=== PATIENT | male | born 1990 | race Caucasian/White ===

== ENCOUNTER 2019-02-27 13:44 | Emergency (ER) | payer SELFPAY ==
[2019-02-27] MEDS ORDERED: SILVER SULFADIAZINE 25 GM CREAM TOP ONE (14:13)
[2019-02-27] MEDS ORDERED: Diph,Pert(Acell),Tet Vac 0.5 ML SYR IM ONE (14:13)
[2019-02-27] MEDS ORDERED: MORPHINE SULFATE 10MG/1ML **1ML VIAL IVP ONE (14:14)
[2019-02-27] MEDS ORDERED: 0.9 % SODIUM CHLORIDE 1,000 ML BAG IV ONE (14:14)
[2019-02-27] MEDS ORDERED: KETOROLAC 30 MG/ML VIAL IVP ONE (14:14)
--- NOTE | 2019-02-27 14:17 | Emergency Department Record ---
History of Present Illness - General Chief complaint: Burn/Smoke Inhalation Stated complaint: SUNBURN LEGS Time Seen by Provider: 02/27/19 14:13 Source: Patient Mode of Arrival: Wheelchair Limitations: No limitations - History of Present Illness Initial comments: 28 yo male presents with bilateral lower leg sunburns that occurred on . He was mowing for 11 hours. He has gomes on the front only of the lower legs on below the knee to the sock line. He has a few blisters on each leg. Onset/Timin -: Days(s) Smoke Inhalation: None Severity scale (1-10): 7 - Related Data Home Medications Medication Instructions Recorded Confirmed Last Taken Fluoxetine HCl [Prozac] 40 mg PO DAILY 02/27/19 02/27/19 02/26/19 Previous Rx's Medication Instructions Recorded Hydrocodone/APAP 5/325Mg [[place] 1 each PO Q6H #12 tab 02/27/19 5Mg/325Mg] Silver Sulfadiazine [Ssd] 85 gm TP BID #2 cream.gm. 02/27/19 Allergies Allergy/AdvReac Type Severity Reaction Status Date / Time No Known Drug Allergies Allergy Unverified 01/28/19 10:21 Travel Screening - Travel/Exposure Within Last 30 Days Have you traveled within the last 30 days?: No - Travel/Exposure Within Last Year Have you traveled outside the [place] in the last year?: No - Additonal Travel Details Have you been exposed to anyone with a communicable illness?: No - Travel Symptoms Symptom Screening: None Past Medical History - SOCIAL HISTORY Smoking Status: Current every day smoker Alcohol Use: Occasional Drug Use: None - RESPIRATORY Hx Respiratory Disorders: No - CARDIOVASCULAR Hx Cardio Disorders: No - NEURO Hx Neuro Disorders: No - GI Hx GI Disorders: No - Hx Genitourinary Disorders: No - ENDOCRINE Hx Endocrine Disorders: No - MUSCULOSKELETAL Hx Musculoskeletal Disorders: No - PSYCH Hx Psych Problems: Yes Hx Depression: Yes - HEMATOLOGY/ONCOLOGY Hx Hematology/Oncology Disorders: No Family Medical History Any Significant Family History?: No Physical Exam - General General Appearance: Alert, Oriented x3, Cooperative, No acute distress Limitations: No limitations - Head Head exam: Atraumatic, Normal inspection - Eye Eye exam: Normal appearance, PERRL, Conjunctival injection. negative: Scleral icterus - ENT ENT exam: Normal exam Ear exam: Normal external inspection Nasal Exam: Normal inspection Mouth exam: Normal external inspection - Neck Neck exam: Normal inspection - Respiratory Respiratory exam: Normal lung sounds bilaterally. negative: Rhonchi, Stridor, Wheezes - Cardiovascular Cardiovascular Exam: Regular rate, Normal rhythm, Normal heart sounds - Rectal Rectal exam: Deferred - exam: Deferred - Extremities Extremities exam: Full ROM, Normal capillary refill, Pedal edema, Tenderness. negative: Normal inspection Image of Full Body: 1 - erythema from just distal to the knee to the sock line. Superfical over the majority. anterior only, 2 - 3cm partial thickness blister 3 - 3cm blister - Back Back exam: Reports: Full ROM - Neurological Neurological exam: Alert, Oriented X3 - Psychiatric Psychiatric exam: Normal affect, Normal mood - Skin Skin exam: Erythema Description of rash: Other (3cm blister on each anterior cuello) Course Vital Signs 02/27/19 13:50 Pulse Rate 91 H Respiratory 16 Rate Blood Pressure 135/87 Pulse Ox 97 - Reevaluation(s) Reevaluation #1: The sunburn is only in the anterior leg. It is not circumferential. The calves are very soft No clinical finding to suggest compartment syndrome 02/27/19 15:14 Procedure: Wound debridement 2 3cm cm blisters were gently unroofed and drained 11 blade used to open then scissors to sharply dissect off the tissue We discussed home care with dressing changes, recheck in 2-3 days if any concerns or sooner if worse, fever, uncontrolled pain 02/27/19 Off work the next three days to recover Medical Decision Making - Lab Data Result diagrams: 02/27/19 14:28 Disposition Disposition: Discharge Clinical Impression: Burn from the sun, Partial thickness burn Disposition: Home, Self-Care Condition: (1) Good Instructions: Sunburn (ED), Second Degree Burn (ED) Additional Instructions: Keep the legs elevated to minimize swelling Return if you have worse pain, swelling or any new concerns Gently clean the legs daily and apply the silvadene twice daily with dressing changes Prescriptions: Hydrocodone/APAP 5/325Mg [[place] 5Mg/325Mg] 1 each PO Q6H #12 tab Silver Sulfadiazine [Ssd] 85 gm TP BID #2 cream.gm. Forms: Patient Portal Access Time of Disposition: 15:18 Quality - Quality Measures Quality Measures: N/A - Blood Pressure Screening Does Patient Have Any of the Following: No Blood Pressure Classification: Pre-Hypertensive BP Reading Systolic Measurement: 134 Diastolic Measurement: 80 Screening for High Blood Pressure: < Pre-Hypertensive BP, F/U Documented > [G8950] Pre-Hypertensive Follow-up Interventions: Referral to alternative/primary care provider.
[2019-02-27 16:07] LABS: BLOOD UREA NITROGEN 15 mg/dL (6-20); CREATININE 0.6 mg/dL (0.7-1.2); EST GLOMERULAR FILTRATION RATE > 60 mL/min
[2019-02-27 16:10] LABS: GLUCOSE,RANDOM 91 mg/dL (74-109)
== END 2019-02-27 15:54 | disposition home or self-care (01) ==
LOC: ER 13:44
DX: L55.1 Sunburn of second degree (principal)
CPT/HCPCS: 16020; 80048; 90715; 96372; 96374; 96375; 99284; J1885; J2270; J7030

== ENCOUNTER 2019-03-02 16:24 | Emergency (ER) | payer SELFPAY ==
--- NOTE | 2019-03-02 16:41 | Emergency Department Record ---
History of Present Illness - General Chief Complaint: Wound, check Stated Complaint: WOUND RECHECK Time Seen by Provider: 03/02/19 16:39 Source: Patient Mode of arrival: Ambulatory Limitations: No limitations - History of Present Illness Initial Comments: 28 yo male presents for a recheck of a sunburn. He had superficial and a few partial thickness gomes from prolong sun exposure mowing over the weekend. He states he continues to slowly improve. No fevers. The intensity of the gomes is decreasing. 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 He still has some swelling but improved. He is using silvadene BID. Complaint: Wound re-check Onset/Timin -: Days(s) Initial Visit For: Other Returns Today for: Other Symptoms Since Prior Visit: No new symptoms, Improved Associated Symptoms: None Treatments Prior to Arrival: Other - Related Data Previous Rx's Medication Instructions Recorded Hydrocodone/APAP 5/325Mg [[place] 1 each PO Q6H #12 tab 02/27/19 5Mg/325Mg] Silver Sulfadiazine [Ssd] 85 gm TP BID #2 cream.gm. 02/27/19 Allergies Allergy/AdvReac Type Severity Reaction Status Date / Time No Known Drug Allergies Allergy Unverified 01/28/19 10:21 Travel Screening - Travel/Exposure Within Last 30 Days Have you traveled within the last 30 days?: No Review of Systems Constitutional: Denies: Chills, Fever, Malaise, Weakness Eyes: Denies: Eye discharge ENT: Denies: Congestion, Throat pain Respiratory: Denies: Cough, Dyspnea, Wheezes Cardiovascular: Denies: Chest pain, Syncope Endocrine: Denies: Fatigue Gastrointestinal: Denies: Abdominal pain, Diarrhea, Nausea, Vomiting Genitourinary: Denies: Dysuria, Frequency, Hematuria Musculoskeletal: Denies: Arthralgia, Back pain, Joint swelling, Myalgia Skin: Reports: As per HPI, Change in color Neurological: Denies: Numbness, Weakness Psychiatric: Denies: Anxiety Hematological/Lymphatic: Denies: Easy bleeding, Easy bruising Past Medical History - SOCIAL HISTORY Smoking Status: Current every day smoker - RESPIRATORY Hx Respiratory Disorders: No - CARDIOVASCULAR Hx Cardio Disorders: No - NEURO Hx Neuro Disorders: No - GI Hx GI Disorders: No - Hx Genitourinary Disorders: No - ENDOCRINE Hx Endocrine Disorders: No - MUSCULOSKELETAL Hx Musculoskeletal Disorders: No - PSYCH Hx Psych Problems: Yes Hx Depression: Yes - HEMATOLOGY/ONCOLOGY Hx Hematology/Oncology Disorders: No Family Medical History Any Significant Family History?: No Physical Exam - General General Appearance: Alert, Oriented x3, Cooperative, No acute distress Limitations: No limitations - Head Head exam: Atraumatic, Normal inspection - Eye Eye exam: Normal appearance - ENT ENT exam: Normal exam Ear exam: Normal external inspection Nasal Exam: Normal inspection Mouth exam: Normal external inspection - Neck Neck exam: Normal inspection - Rectal Rectal exam: Deferred - exam: Deferred - Extremities Extremities exam: Normal capillary refill. negative: Normal inspection Image of Full Body: 1 - erythema (less intense than the initial visit) soft, mild swelling, not circumfirential, areas of partial thickness blisters on both legs with slight yellow (non purulent) drainage. 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 We discussed reasons for another recheck, otherwise continue the course and return as needed Disposition Disposition: Discharge Clinical Impression: Burn from the sun, Partial thickness burn Disposition: Home, Self-Care Condition: (1) Good Instructions: Sunburn (ED), Second Degree Burn (ED) Additional Instructions: Continue your current care You can decrease the thickness or amount of silvadene cream you are applying Avoid periods of standing to continue to keep swelling down Return if you have any concerns with the continued healing of the sun burn Forms: Patient Portal Access Time of Disposition: 16:41 Quality - Quality Measures Quality Measures: N/A - Blood Pressure Screening Does Patient Have Any of the Following: No Blood Pressure Classification: Pre-Hypertensive BP Reading Systolic Measurement: 125 Diastolic Measurement: 71 Screening for High Blood Pressure: < Pre-Hypertensive BP, F/U Documented > [G8950] Pre-Hypertensive Follow-up Interventions: Referral to alternative/primary care provider.
== END 2019-03-02 16:52 | disposition home or self-care (01) ==
LOC: ER 16:24
DX: L55.1 Sunburn of second degree (principal); F17.210 Nicotine dependence, cigarettes, uncomplicated
CPT/HCPCS: 99281